=== PATIENT | female | born 1950 | race Caucasian/White ===

== ENCOUNTER 2018-07-11 23:36 | Emergency (ER) | payer SELFPAY ==
[~2018-07-11] VITALS: Ht 154.9 cm; Wt 70.0 kg
--- NOTE | 2018-07-12 00:10 | NUR ---
KELLY C/O FACE PAIN S/P GLF X 4 HRS AGO PER SON, DENIES ANY CHANGES IN LOC, NOSE BLEED AT TIME OF FALL, ABLE TO STOP, VS STABLE PLACED ON ER BED 3, AWAITING FOR ER MD TO [facility].
[2018-07-12] MEDS ORDERED: TDAP [DIPH/PERTUSSIS/TET] 0.5 ML VIAL IM ONE ×2 (02:28→02:30)
[2018-07-12] MEDS ORDERED: CEPHALEXIN MONOHYDRATE 500 MG CAPSULE PO ONE ×2 (02:28→02:30)
--- NOTE | 2018-07-12 02:48 | NUR ---
Patient discharged to home in stable condition. Written rx and verbal after care instructions given. Patient verbalizes understanding of instruction.
[2018-07-12 03:05] VITALS: BP 134/80
== END 2018-07-12 03:06 | disposition home or self-care (01) ==
LOC: ER 23:39
DX: S02.32XA Fracture of orbital floor, left side, initial encounter for closed fracture (principal); I10 Essential (primary) hypertension; E11.9 Type 2 diabetes mellitus without complications; W01.0XXA Fall on same level from slipping, tripping and stumbling without subsequent striking against object, initial encounter; Y93.01 Activity, walking, marching and hiking; Y92.59 Other trade areas as the place of occurrence of the external cause; Y99.8 Other external cause status
CPT/HCPCS: 70450-TC; 70486-TC; 90715